=== PATIENT | female | born 1970 | race Caucasian/White ===

== ENCOUNTER → 2016-11-08 | Outpatient (CLI) | payer BC | LOC: MC.RAD 08:59 | DX: Z12.31 Encounter for screening mammogram for malignant neoplasm of breast (principal) ==

== ENCOUNTER → 2018-11-27 | Outpatient (CLI) | payer BC | LOC: MC.RAD 14:30 | DX: Z12.31 Encounter for screening mammogram for malignant neoplasm of breast (principal) ==

== ENCOUNTER → 2020-08-01 | Outpatient (CLI) | payer BC ==
[~2020-08-01] MED LIST: ASPIRIN 81M81 MG/TA2 PO; BONINE25 MG PO; FIORICET 325 MG1 TA1 PO; LIPITOR 80MG80 MG PO; PLAVIX 75MG TAB75 MG PO; VALIUM 2MG T2 MG/TAB PO; ZOFRAN ODT4 MG PO
== END ==
LOC: MC.RAD
DX: Z12.31 Encounter for screening mammogram for malignant neoplasm of breast (principal)

== ENCOUNTER 2020-08-05 12:23 | Emergency (ER) | payer BC ==
[~2020-08-05] VITALS: Ht 172.7 cm; Wt 68.2 kg
[2020-08-05 12:34] VITALS: TEMP 97.4
[2020-08-05] MEDS ORDERED: VALIUM 2MG T2 MG/TAB PO ×2 (16:14)
[2020-08-05] MEDS ORDERED: BONINE25 MG PO ×2 (16:14)
[2020-08-05] MEDS ORDERED: ZOFRAN ODT4 MG PO (16:14)
[2020-08-05 17:30] VITALS: BP 128/77; PULSE 96
== END 2020-08-05 17:30 | disposition home or self-care (01) ==
LOC: COL.ER 12:23
DX: H81.399 Other peripheral vertigo, unspecified ear (principal); R11.2 Nausea with vomiting, unspecified; Z88.0 Allergy status to penicillin; Z88.6 Allergy status to analgesic agent
CPT/HCPCS: J1200; J2060; J2405; J2765; J3360; J7030

== ENCOUNTER 2020-08-08 06:40 | Inpatient (IN) | payer BC ==
[2020-08-08] VITALS (311 sets, daily range): BP systolic 124–131; BP diastolic 72–75; PULSE 83–86; TEMP 98.3–98.8; O2SAT 88–100
[~2020-08-08] VITALS: Ht 172.7 cm; Wt 68.2 kg
[~2020-08-08 06:40] MED LIST changes: -ASPIRIN 81M81 MG/TA2 PO; -FIORICET 325 MG1 TA1 PO; -LIPITOR 80MG80 MG PO; -PLAVIX 75MG TAB75 MG PO
[2020-08-08 07:31] LABS: CALCIUM 9.5 mg/dL (8.4-10.2); CREATININE, serum 0.69 (0.52-1.25); POTASSIUM 3.4 mmol/L (3.4-5.0)
[2020-08-08 12:25] LABS: BASO # 0.1 (0.0-0.2); BASO % 0.8 % (0.0-2.0); EOS # 0.1 (0.0-0.7); EOS % 0.6 % (0-4.0); GRAN # 4.2 (1.4-6.5); GRAN % 52.7 % (42.2-75.2); HEMATOCRIT 42.1 % (37.0-47.0); HEMOGLOBIN 14.1 g/dl (12.5-16.0); LYMPH % 37.6 % (20.0-51.0); MEAN CELL VOLUME 89 fl (80.0-100.0); MEAN CORPUSCULAR HEMOGLOBIN 30 pg (27.0-31.0); MEAN CORPUSCULAR HGB CONC 34 g/dl (33.0-37.0); MEAN PLATELET VOLUME 10.7 fl (7.4-10.4); MONO # 0.6 (0.1-0.6); PLATELET COUNT 342 K/mm3 (130-400); RED BLOOD COUNT 4.72 M/mm3 (4.10-5.30); REDCELL DISTRIBUTION WIDTH-CV 11.7 % (11.5-14.5)
[2020-08-08 12:30] LABS: ALBUMIN 4.1 gm/dL (3.5-5.0); BILIRUBIN UNCONJUGATED 0.5 mg/dL (0.0-1.1); BILIRUBIN,TOTAL 0.5 mg/dL (0.0-1.0); TOTAL PROTEIN 7.4 gm/dL (6.4-8.2)
[2020-08-08 12:36] LABS: PROTHROMBIN TIME 11.6 SECONDS (9.7-12.8)
[2020-08-08 12:58] LABS: MAGNESIUM 1.9 mg/dL (1.6-2.3)
--- NOTE | 2020-08-08 13:41 | NUR ---
PT ADMITTED TO ICU FROM ED FOR CVA. PT HAS RIGHT SIDED FACIAL DROOP. PT'S VSS. PT HAS WEAKNESS AND LEANING THE RIGHT SIDE WHEN WALKING. PT IS AXOX4. PT SPEECH IS CLEAR. BEDSIDE. PT ORIENTED TO ROOM AND FLOOR. PT INSTRUCTED TO CALL WITH ALL NEEDS AND NOT TO GET UP ALONE. WILL CONTINUE TO MONITOR.
--- NOTE | 2020-08-08 14:28 | NUR ---
CT CALLED AND THEY STATED THEY WILL COME DIRECTOR OF CASINO MARKETING. SPEECH CALLED AND STATED THEY WILL COME SEE PT THIS AFTERNOON. CLARIFIED WITH DR.CHITNIS TOMPKINS TO GIVE PO ASPIRIN AFTER SPEECH EVALUATES.
--- NOTE | 2020-08-08 20:41 | NUR ---
Assessment complete and charted. Patient up to restroom and returned to bed. Unsteady gait with right sided weakness. Patient reporting double vision. Denies pains. Stroke assessment complete.
--- NOTE | 2020-08-08 21:31 | NUR ---
Patient reporting "heartburn" when laying flat. Spoke with Yaneth LEONE. Will add PPI.
[2020-08-09] VITALS (268 sets, daily range): BP systolic 113–142; BP diastolic 67–87; PULSE 72–81; TEMP 97.4–98.1; O2SAT 86–100
--- NOTE | 2020-08-09 06:07 | NUR ---
Patient reports headache. Refused rectal tylenol. Spoke with Yaneth LEONE. Orders added.
--- NOTE | 2020-08-09 07:00 | NUR ---
Patient reported GI discomfort and headache during night otherwise uneventful night. Resting in bed this AM.
--- NOTE | 2020-08-09 07:05 | NUR ---
RECEIVED REPORT FROM MARILYN NEIL. PT RESTING EASILY ON 1L VIA NC. VSS. CALL LIGHT WITHIN REACH. PT C/O SMALL WILLAMS STILL AND REQUESTS COLD WASH CLOTH TO PLACE ON FOREHEAD, PROVIDED. PT STILL REFUSES SUPPOSITORY TYLENOL AT THIS TIME.
--- NOTE | 2020-08-09 07:26 | NUR ---
Report given to Jonathon SANDERS
[2020-08-09 08:00] LABS: CHOLESTEROL RISK RATIO 4.5
--- NOTE | 2020-08-09 09:34 | NUR ---
DISCUSSED POC WITH DR ARTIS AND PER REPORT, NO CHANGES IN STROKE LIKE SYMPTOMS. NEW ORDERS RECEIVED. PHYSICIAN STATES AFTER SWALLOW STUDY DONE, MAY CHANGE PILL ADMINISTRTIONS AND DIET ORDERS DEPENDING ON RESULTS.
--- NOTE | 2020-08-09 10:31 | NUR ---
Plan to participate in IPR or SNF. SW met with patient about care. SW met with and client in room. Dante Cabello . No other contact listed. Patient reports that they resides locally. PCP is Dr. Yancy Martínez. Patient reports that use of [facility] for medications. Ping does not have a DPOA and reports that will verbalize. Patient reports that her vision is off and balances is off. Patient will work with PT/OT to support care plan. Patient and spouse is agreeable to referral to SNF, educated on [facility], [facility], and [facility] as back up to plan. Patient denies having any DME use but wants to know if she needs to obtain a wheelchair or walker. Educated on how to obtain one. Referral will be sent to SNF and await response.
--- NOTE | 2020-08-09 10:40 | NUR ---
Plan for SNF or IPR. CORNELIA met with patient and spouse Dante Cabello .No other contact persons. Patient reports her PCP is Dr. Yancy Martínez. Patient reports that she uses [facility] for medications. Patient shares that she does not use any DME but asked how to obtain a walker or wheelchair. SW educated on process if needed. Patient reports that she is not opposed to the SNF referral with [facility], [facility], [facility] as a backup to the plan. Patient reports that she is wanting to do DPOA and her and her spouse will talk about it. SW will faxed [facility] for SNF services. Patient reports that her vision is blurred and gait is unsteady. Patient reports that prior to this episode, she was fully healty. Educated on care. Will continue to follow.
--- NOTE | 2020-08-09 11:24 | NUR ---
PT TO SWALLOW STUDY WITH SPEECH THERAPY VIA WC ON RA AT 1037. PT BACK AT 1124. PER SPEECH THERAPY RECOMMENDATIONS, MECHANICAL SOFT DIET RECOMMENDED AND SUGGESTED TO CRUSH PILLS AT THIS TIME UNTIL PT GETS STRONGER TO SWALLOW A PILL WHOLE EASIER AGAIN. NOTED EASIER TO SWALLOW SOLIDS EASIER WHEN TURNED HEAD TO THE RIGHT AND WITH WATER TO FOLLOW SOLIDS BITE. PT PLACED BACK IN BED AND BACK ON BEDSIDE COTNINUOUS MONITOR. CALL LIGHT WITHIN REACH. AT BEDSIDE.
--- NOTE | 2020-08-09 12:50 | NUR ---
First visit from the glove finisher. No needs right now.
--- NOTE | 2020-08-09 13:10 | NUR ---
SPOKE TO DR LANE ABOUT SWALLOW STUDY AND POC. PT UPDATED AND AWARE OF TRANSFER ORDERS.
--- NOTE | 2020-08-09 14:04 | NUR ---
Control Officer was contacted by Belem at [facility] who advised patient does not have skilled benefits through her [employer] Policy. Belem advised they could accept on a private pay basis.
--- NOTE | 2020-08-09 15:04 | NUR ---
REPORT GIVEN TO MARILYN CHAVARRIA ON MEDICAL. PT TO TRANSFER VIA WC TO [address]. ALL PERSONAL BELONGINGS SENT WITH PT.
--- NOTE | 2020-08-09 16:00 | NUR ---
Pt admitted to medical unit rm 318 from ICU via WC accompanied by MARILYN Velasquez. Pt awake and alert, oriented x 4. ST at bedside at this time and pt slowly eating lunch. IVF's infusing to right AC site without s/s of complications. Pt's at bedside. Call light in reach.
--- NOTE | 2020-08-09 16:40 | NUR ---
IVF's stopped and disconnected per transfer orders.
--- NOTE | 2020-08-09 18:47 | NUR ---
Pt assisted with shower from COPY TECHNICIAN per request. COPY TECHNICIAN reports pt able to do all bathing independently. Pt reports feeling like the water was not warm on her left upper back/shoulder compared to the right side. Report with MARILYN Daniel.
--- NOTE | 2020-08-10 00:06 | NUR ---
Patient sitting up and having dinner upon enter the room. Shift assessment completed. Patient A/O x4. Patient denies any chest pain, discomfort, N/V, headache, or dizziness while at rest. Patient reports having a little SOB and dizzy upon get up and ambulate. Patient states due to her double vision, can't see well and dizzy when get up. Patient currently on 1L oxygen via NC. VS stable. All scheduled meds given. Pills crushed and mixed in apple sauce given. Patient was able to take it small bite each time. Patient reports some numbness to right side of face. Upper and lower extremities senstations are intact and able to follow commands. Call light within reach. Patient denies any needs at this time.
[2020-08-10 00:43] VITALS: BP 121/71; PULSE 77; TEMP 98.2
[2020-08-10 04:31] VITALS: BP 110/65; PULSE 74; TEMP 98.6
--- NOTE | 2020-08-10 06:25 | NUR ---
Patient c/o headache around 01:40 am. Patient denies chest pain, SOB, N/V. Able to move all the extremities without difficulty. VS stable. PRN Tylenol given for headache. Patient fell asleep after a while. Patient awake around 05:30 am and c/o bad headache. Denies chest pain, SOB, or N/V. Called hospitalist EZEQUIEL Zelaya and received order to get head CT done. Patient down to head CT at this time. Will give report to day shift nurse.
--- NOTE | 2020-08-10 07:43 | NUR ---
RECIEVED BEDSIDE REPORT FROM MARILYN DELGADO. PATIENT C/O SEVERE HEADACHE ON THE RIGHT SIDE OF HER HEAD. REPORTS THROBBING EVERY 10-[address] DONE NO SIGNIFICANT FINDINGS. PATIENT GIVEN 650 MG OF TYLENOL, A COLD COMPRESS, AND LIGHTS WERE TURNED OUT. PATIENT IS RESTING IN BED AT THIS TIME. WILL CONTINUE TO MONITOR. FALL PERCAUTIONS IN PLACE. CALL LIGHT WITHIN REACH.
[2020-08-10 08:15] VITALS: BP 121/68; PULSE 98; TEMP 98.1
[2020-08-10] MEDS ORDERED: LIPITOR 80MG80 MG PO (10:46)
[2020-08-10] MEDS ORDERED: ASPIRIN 81M81 MG/TA2 PO (10:46)
[2020-08-10] MEDS ORDERED: PLAVIX 75MG TAB75 MG PO (10:46)
[2020-08-10] MEDS ORDERED: FIORICET 325 MG1 TA1 PO (10:47)
[2020-08-10 11:41] VITALS: BP 123/82; PULSE 87; TEMP 97.9
--- NOTE | 2020-08-10 11:45 | NUR ---
Patient to discharge to [facility] today.
[2020-08-10 11:52] VITALS: BP 123/82; PULSE 87; TEMP 97.9
--- NOTE | 2020-08-10 12:39 | NUR ---
PATIENT VISITING WITH FAMILY AT THIS TIME. DENIES ANY PAIN OR DISCOMFORT AT THIS TIME. PATIENT TRANSFERED TO [facility].
== END 2020-08-10 13:16 | DRG 66 ==
LOC: COL.ER 06:40 → ICU 12:13 → MEDICAL 08-09 15:06
PROVIDERS: Emergency Medicine; Hospitalist; ADMIT Internal Medicine
DX: I63.211 Cerebral infarction due to unspecified occlusion or stenosis of right vertebral artery (principal); R29.704 NIHSS score 4; G43.909 Migraine, unspecified, not intractable, without status migrainosus; E87.6 Hypokalemia; R47.81 Slurred speech; R29.810 Facial weakness; Z88.0 Allergy status to penicillin; Z88.6 Allergy status to analgesic agent
CPT/HCPCS: 99222-AI; 99232-AI; 99239; A9585; C9113; J1200; J1650; J2765; J3480; J7030; Q9967

== ENCOUNTER 2020-08-10 12:55 | Inpatient (IN) | payer BC ==
[~2020-08-10] VITALS: Ht 172.7 cm; Wt 67.9 kg
[~2020-08-10 12:55] MED LIST changes: +ASPIRIN 81M81 MG/TA2 PO; +FIORICET 325 MG1 TA1 PO; +LIPITOR 80MG80 MG PO; +PLAVIX 75MG TAB75 MG PO
[2020-08-10 17:42] VITALS: BP 117/80; PULSE 81; TEMP 97.5
--- NOTE | 2020-08-10 20:01 | NUR ---
Patient arrived to [facility] at 12:55 PM today. Patient was a one assist with transferring from wheelchair to the standing scale. Patient's assessments were completed. She refused her flu vaccine. This nurse had received report from MARILYN Dexter at the medical unit. Patient has right side face drooping and double vision. Patient does wear glasses, but they do bother her due to her diplopia. She has no skin issues. Patient was oriented to [facility] schedule. This nurse then reported off to night nurse.
--- NOTE | 2020-08-10 21:00 | NUR ---
PT RESTING IN BED. SPEECH CLEAR. PT RELATES STILL HAVING DOUBLE VISION BUT IT IS IMPROVING. FEELS ALITTLE WEAKER IN LT HAND. NO NUMBNESS. WEAK GAIT- UNSTEADY. PT REPORTS EQUILIBRIUM IS BAD. PT REPORTS SOON SHE GOT INTO BED SHE STARTED GETING AHEAD ACHE. PT WANTS TO START WITH TYLENOL FIRST THEN IF IT GETS WORSE SHE TRY FIORECET. CALL LIGHT IN REACH. BED ALARM SET. SET UP SCD'S.
--- NOTE | 2020-08-10 23:00 | NUR ---
PT SLEEPING. NO DISTRESS.
--- NOTE | 2020-08-11 04:18 | NUR ---
GAVE TYLENOL FOR HEADACHE LEVEL 10. BP WNL. ALL PILLS CRUSHED IN APPLESAUCE TONIGHT AND TOLERATED WELL. DENIES ANY OTHER COMPLAINTS.
[2020-08-11 04:21] VITALS: BP 100/50; PULSE 72; TEMP 97.2
--- NOTE | 2020-08-11 06:07 | NUR ---
GIVEN FIORECCET FOR UNRELIEVED WILLAMS PAIN LOCALIZED TO RT SIDE. NO VISUAL CHANGES. ADMINISTRATIVE TECHNICIAN UNCHANGED. VSS
--- NOTE | 2020-08-11 08:52 | NUR ---
PT RESTING IN BED AT REPORT. DENIES HEADACHE THIS AM, SLEPT INTERMITTENTLY.
--- NOTE | 2020-08-11 10:27 | NUR ---
Initial visit; Patient states she is tired but appreciative of all of her ilan jarrett from friends and amazed at the wonderful staff we have here. She and her remarked about the wonderful care she has received. She has no spiritual needs at this time though is receptive to having Restaurant Kitchen Manager keep her in her prayers.
--- NOTE | 2020-08-11 14:41 | NUR ---
CORNELIA met with the patient and her , Dante (ph#[phone]), to complete intake, as the patient is new to [facility]. The patient lives in [place] with her . She reports independence with ADLs before the CVA and does not have any DME. The patient's PCP is Dr. Yancy Martínez and [facility] She reports no difficulties obtaining her meds. The patient does not have a DPOA-HC, but her and her were both interested in obtaining a form. CORNELIA provided. The patient and her plan to complete one while here. SW to continue to follow.
--- NOTE | 2020-08-11 15:41 | NUR ---
The patient and her both completed a DPOA-HC. The patient designated her and her brother, Flaco Cleaning, as the alternate. CORNELIA and RN, Wendy, witnessed the patient's signature. The patient was provided with the original and some copies. CORNELIA placed a copy in the patient's chart. The patient and her were also interested in obtaining a Living Will form. CORNELIA provided.
[2020-08-11 17:53] VITALS: BP 120/82; PULSE 77; TEMP 97.9
--- NOTE | 2020-08-11 19:50 | NUR ---
PT VERY UPSET ABOUT FOOD OPTIONS FOR VEGETARIANS IN THE [place]. HAS EATEN VERY LITTLE FOR SEVERAL DAYS. REQUESTED BRINGING MINI FRIDGE IN SO SHE COULD HAVE HER OWN FOOD OPTIONS AVAILAB. KOBI SHAFER NOTIFIED AND SAID SHE WOULD LOOK INTO IT. WAS TOLD BY KOBI LATER IN THE DAY THAT SHE CHECKED WITH [facility] AND THE FRIDGE WAS OKAYD. PT ALSO OKAY'D BY THERAPY, RN, AND [facility] REHAB COORDINATOR TO GO OUT TO [facility] WITH . PT REPORTED MILD HEADACHE BEGINNING TONIGHT BUT REFUSED MEDICATION AT THIS TIME.
--- NOTE | 2020-08-11 20:00 | NUR ---
PT RESTING IN BED. HAVING MILD WILLAMS. BP WNL. NO NEUROLOGICAL CHANGES. SEE MAR FOR TYLENOL GIVEN. CALL LIGHT IN REACH. BED ALARM SET.
--- NOTE | 2020-08-12 03:30 | NUR ---
PT AWAKE. HAVING HEADACHE AGAIN. GAVE FIORICET 1 TAB. NO CHANGES IN NEURO STATUS.
[2020-08-12 05:44] VITALS: BP 118/74; PULSE 75; TEMP 98
[2020-08-12 16:51] VITALS: BP 116/65; PULSE 74; TEMP 98
--- NOTE | 2020-08-12 18:54 | NUR ---
PATIENT GIVEN PRN TYLENOL OF HEADACHE IN THE MORNING WITH AM MEDS. PATIENT DENIED PAIN THROUGHOUT THE REST OF THE SHIFT. PATIENT NEEDING SBA TO MIN CGA FOR STEADYING. REPORT GIVEN TO MARILYN LUGO.
--- NOTE | 2020-08-12 20:59 | NUR ---
PT REFUSES SCD'S. ENC FREQUENT FOOT, ANKLE AND KNEE ROM. PT AGREED.
[2020-08-13 05:36] VITALS: BP 125/81; PULSE 65; TEMP 98
[2020-08-13 10:34] VITALS: BP 115/79; PULSE 68
--- NOTE | 2020-08-13 10:37 | NUR ---
Patient will discharge home today 08/13 with Dante. No further needs at this time.
[2020-08-13 16:19] VITALS: BP 110/84; PULSE 80; TEMP 97.4
--- NOTE | 2020-08-13 18:56 | NUR ---
PATIENT GIVEN TYLENOL IN AM FOR HEADACHE. PATIENT DENIED PAIN FOR THE REST OF THE SHIFT. PATIENT HAS BEEN SBA WITH THE GAIT BELT IN THE ROOM. REPORT GIVEN TO MARILYN LUGO.
--- NOTE | 2020-08-13 20:31 | NUR ---
PT SITTING UP IN RECLINER. WORKING ON COMPUTER. PT DENIES WILLAMS. BANDER HAND EQUAL BILAT. DOUBLE VISION IMPROVING PER PT. PT REPORTED ATE A GOOD PM MEAL TONIGHT OF HER OWN FOOD. REFUSES SCD'S TONIGHT. REMINDED OF PURPOSE FOR SCD'S. CALL LIGHT IN REACH. CHAIR ALARM SET.
[2020-08-14 04:08] VITALS: BP 113/79; PULSE 81; TEMP 98.6
--- NOTE | 2020-08-14 04:09 | NUR ---
PT AWAKES WITH FRONTAL H/A AGAIN. NO CHANGE IN VISUAL DEFECTS. VSS. TYLENOL CRUSHED IN APPLESAUCE. NO CHOKING. GIVEN. ASSISTED TO BR WITH WALKER. VOIDED W/O DIFFICULTY. BACK TO BED. HOB REMAINS ELEVATED. CALL LIGHT IN REACH. BED ALARM SET.
[2020-08-14 06:27] LABS: BASO % 0.5 % (0.0-2.0); EOS # 0.1 (0.0-0.7); EOS % 2.2 % (0-4.0); HEMATOCRIT 39.1 % (37.0-47.0); HEMOGLOBIN 12.7 g/dl (12.5-16.0); LYMPH # 1.6 (1.2-3.4); LYMPH % 37.7 % (20.0-51.0); MEAN CELL VOLUME 91 fl (80.0-100.0); MEAN CORPUSCULAR HEMOGLOBIN 30 pg (27.0-31.0); MEAN CORPUSCULAR HGB CONC 33 g/dl (33.0-37.0); MEAN PLATELET VOLUME 10.3 fl (7.4-10.4); MONO # 0.4 (0.1-0.6); MONO % 10.4 % (1.7-9.3); PLATELET COUNT 309 K/mm3 (130-400); RED BLOOD COUNT 4.29 M/mm3 (4.10-5.30); REDCELL DISTRIBUTION WIDTH-CV 11.9 % (11.5-14.5)
[2020-08-14 06:44] LABS: CALCIUM 9.3 mg/dL (8.4-10.2); CREATININE, serum 0.63 (0.52-1.25)
--- NOTE | 2020-08-14 08:28 | NUR ---
PT SLEEPING AT REPORT, REPORTS MILD HEADACHE AND TOOK PRN APAP THIS AM FOR IT.
--- NOTE | 2020-08-14 11:50 | NUR ---
CORNELIA met with the patient and her to follow up after the weekend. The patient states that she is doing well. The patient and her would like to complete a Living Will. CORNELIA and GRAVURE PRESS OPERATORFranko, witnessed the patient's signature. The patient was provided with the original and some copies. CORNELIA placed a copy in the patient's chart. The patient also provided SW with FMLA paperwork that needs to be completed and signed by the physician. CORNELIA notified IPR Director and will provide IPR Director with the forms.
--- NOTE | 2020-08-14 14:37 | NUR ---
The patient's FMLA paperwork was completed and signed by the physician. SW provided the forms back to the patient and her . SW placed a copy of the forms in the patient's chart.
[2020-08-14 16:19] VITALS: BP 108/81; PULSE 78; TEMP 97.7
--- NOTE | 2020-08-14 19:06 | NUR ---
PT RECEIVED PRN APAP ONCE THIS SHIFT FOR HEADACHE. NO OTHER COMPLAINTS THIS SHIFT.
--- NOTE | 2020-08-14 21:30 | NUR ---
Patient called and requested tylenol and to get ready for bed. Patient swallowed pills without difficulty. Patient walked to bathroom with gait belt and one assist, brushed her teeth, and washed her face. No other needs at this time. Call light in reach.
[2020-08-15 04:11] VITALS: BP 119/69; PULSE 84; TEMP 97.6
--- NOTE | 2020-08-15 05:03 | NUR ---
Patient woke up with complaints of a headache. Tylenol administered.
--- NOTE | 2020-08-15 07:40 | NUR ---
Patient resting in bed, call light in reach and bed alarm set. Patient independent with eating her meals.
--- NOTE | 2020-08-15 13:59 | NUR ---
CORNELIA met with the patient and her to discuss setting up a patient/family meeting. The meeting was scheduled on at 1300. CORNELIA notified IPR Director.
--- NOTE | 2020-08-15 14:49 | NUR ---
Admission QIM scores were reviewed by the team. Code of 4 chosen for toilet hygiene was determined by team discussion to be the most usual performance for this patient during the assessment period. Code of 3 chosen for toileting transfers was determined by team discussion to be the most usual performance for this patient during the assessment period. Code of 4 chosen for rolling left to right was determined by team discussion to be the most usual performance for this patient during the assessment period. Code of 4 chosen for sit to lying was determined by team discussion to be the most usual performance for this patient during the assessment period. Code of 4 chosen for lying to sitting on side of bed was determined by team discussion to be the most usual performance for this patient during the assessment period. Code of 3 for sit to stand was determined by team discussion to be the most usual performance for this patient during the assessment period. Code of 3 for chair/bed to chair transfers was determined by team discussion to be the most usual performance for this patient during the assessment period.--Isis Duarte,
[2020-08-15 18:00] VITALS: BP 122/76; PULSE 77; TEMP 97.8
--- NOTE | 2020-08-15 20:00 | NUR ---
PATIENT SITTING IN UPRIGHT CHAIR FULLY DRESSED, HAIR DONE UP, TALKING WITH , PATIENT DEMONSTRATED STanding UP ON HER OWN BILATERIL SQUEEZE OF HANDS, SOME DOUBLE VISION LEFT SIDE PERIFERY. MINOR HEADACHE, RIGHT FRONTAL,
--- NOTE | 2020-08-15 20:01 | NUR ---
Patient attended all therapies and tolerated diet as well. Patient continues to receive her meals from her family due to her food allergies. Patient takes her pills whole with water and takes Tylenol to help with her headaches. She reported a headache only once today. Patient's was at her side throughout the day today. Patient continues to have double vision. Will continue to monitor.
[2020-08-16 05:59] VITALS: BP 120/77; PULSE 82; TEMP 98.2
--- NOTE | 2020-08-16 08:09 | NUR ---
Patient resting in bed, call light in reach bed alarm set. Patient eating her breakfast at this time. Will continue to monitor.
--- NOTE | 2020-08-16 08:11 | NUR ---
Patient reporting throbbing pain around her right restorationism and eye. Double vision when looking up and peripherial. Will continue to monitor.
--- NOTE | 2020-08-16 09:49 | NUR ---
Patient currently working with OT at this time.
--- NOTE | 2020-08-16 16:28 | NUR ---
CORNELIA met with the patient and her to present and review the IPR Team Conference Note. The team has set a tentative d/c date for this Friday, 08/19, with outpatient PT/OT/ST. The patient and her were agreeable to the plan. The patient states that her ended up failing his stress test and has a heart cath scheduled tomorrow, so he will not be available for the patient/family meeting. She states that she will have help from a friend for a week though, while her recovers. The patient/family meeting was rescheduled for Friday at 1300. CORNELIA notified IPR Director. CORNELIA informed the patient how [facility] has all three disciplines. The patient states that she needs to research the therapy center first before deciding on if she wants to pursue therapy there or not. The patient was also interested in obtaining her medical records. CORNELIA provided the patient with the Request for Medical Records form to the patient and provided her with Medical Records phone number. CORNELIA answered all questions.
[2020-08-16 17:14] VITALS: BP 114/78; PULSE 85; TEMP 97.5
--- NOTE | 2020-08-16 19:55 | NUR ---
Patient attended all therapies today. Tolerated her diet well. Patient currently resting in recliner, with by her side. Call light in reach and alarm set. Reported off to night nurse.
--- NOTE | 2020-08-16 23:01 | NUR ---
2044- ASSESSMENT COMPLETE. PT SETTING UP IN RECLINER. SPOUSE HAD JUST LEFT AFTER DINNER. PT IS STARTING TO HAVE HEADACHE STATES ITS COMMEN AT NIGHT. DENIES ANY OTHER PAIN OR DEFICITES TONIGHT. NEURO INTACT. PLAN OF CARE FOR NIGHT DISCUSSED. NEEDS MET.
[2020-08-17 03:40] VITALS: BP 113/78; PULSE 81; TEMP 97.6
--- NOTE | 2020-08-17 05:22 | NUR ---
SLEPT THROUGH MOST OF NIGHT WITHOUT INCIDENT. DID HAVE TO TREAT HEADACHE OTHER DAHL PT DOING WELL. NEEDS MET.
--- NOTE | 2020-08-17 12:06 | NUR ---
PT MADE IND IN ROOM TODAY PER THERAPY. PT DENIES PAIN THIS AM.
--- NOTE | 2020-08-17 15:44 | NUR ---
CORNELIA met with the patient to follow up on preference for outpatient therapy. The patient would like to go ahead and get set up at [facility]. CORNELIA attempted to contact [facility] to schedule the appointments. CORNELIA left them a voicemail. The patient also provided CORNELIA with her Request of Medical Information Form. CORNELIA provided the form to Medical Records. The patient informed CORNELIA that her will staying overnight in the hospital after his procedure today and should d/c tomorrow. SW to continue to follow.
--- NOTE | 2020-08-17 20:07 | NUR ---
PT MADE INDEPENDENT IN ROOM TODAY PER THERAPY. NO PRN'S, SPENT EVENING WITH WHO IS IN ICU. PT ASSISTED THERE AND BACK BY STAFF AND ENCOURAGED TO CALL FOR ANY ISSUES, ICU STAFF WAS AWARE AND OK WITH THIS ARRANGEMENT.
[2020-08-17 20:16] VITALS: BP 126/70; PULSE 92; TEMP 98.1
--- NOTE | 2020-08-18 00:27 | NUR ---
2100- ASSESSMENT COMPLETE. PT DENIES ANY MILD HEADACHE. TYLENOL GIVEN. DENIES ANY SOA, DIZZY OR CHEST PAIN. UP INDEPENDENTLY IN ROOM. PLAN OF CARE DISCUSSED. NEEDS MET.
[2020-08-18 05:08] VITALS: BP 123/75; PULSE 83; TEMP 97.4
--- NOTE | 2020-08-18 05:26 | NUR ---
rested through night without incident. dsg remained c/d/i. did have bm this am along w alot of gas. tylenol still working for pain control.
--- NOTE | 2020-08-18 05:28 | NUR ---
last note at 0535 created in error. charting on wrong pt. pt rested through night without incident. tyl given for headache otherwise not issue.
--- NOTE | 2020-08-18 08:54 | NUR ---
Patient resting in bed at this time.
--- NOTE | 2020-08-18 09:23 | NUR ---
CORNELIA contacted [facility] and scheduled the patient an outpatient PT appointment on 08/24 at 0930, an OT appointment on 08/24 at 1100, and an ST appointment on 09/05 at 0830. CORNELIA provided the appointments to the patient's RN. CORNELIA will need to fax the patient's d/c orders to [facility] [phone].
[2020-08-18] MEDS ORDERED: LIPITOR 80MG80 MG PO (11:40)
[2020-08-18] MEDS ORDERED: PLAVIX 75MG TAB75 MG PO (11:40)
--- NOTE | 2020-08-18 14:49 | NUR ---
Patient attended all therapies today. Continues to have headaches and has been taking tylenol with good effect at times. She reports that headaches are worse in the evenings, but they are still tolerable. Dr. Curran's office was called, but it is closed today. Patient will call their office on Friday to schedule a follow up appointment. Patient and are trying to decide which physician to choose at this time.
--- NOTE | 2020-08-18 15:05 | NUR ---
CORNELIA attended the patient/family meeting. The patient's , Dante, was at bedside. Also present was IPR Director, PT, OT, and ST. IPR Director started by explaining the purpose of the meeting. PT/OT/ST then discussed the patient's progress so far and confirmed the d/c date for tomorrow with outpatient PT/OT/ST. The patient and her were agreeable to the plan. The team answered all questions. The patient reports that she would prefer later times now for her appointments. CORNELIA informed her of the appointment times. The patient was okay with the outpatient PT/OT times. She requested a later time the day of her ST appointment. If no later time, she would take the appointment she has now. CORNELIA contacted [facility]. The legal receptionist reports that they do not have any later times for ST the day of her ST appointment. The next available day would be 09/18. CORNELIA met with the patient and her to update. The patient would like to see ST before 09/05. CORNELIA informed her about how [facility] offers outpatient ST. The patient would like to go ahead and see if they have any sooner appointments. CORNELIA contacted Wendy at [facility] and scheduled the patient an outpatient ST appointment on 08/25 at 1100. CORNELIA informed the patient and her . The patient is agreeable to that appointment. CORNELIA notified the patient's RN of the appointment change. CORNELIA will need to fax the patient's discharge orders to [facility] (fax#[phone]) as well as [facility] for the outpatient PT/OT. CORNELIA contacted [facility] and canceled the patient's ST appointment there.
--- NOTE | 2020-08-18 15:39 | NUR ---
Patient resting in recliner, call light in reach and at her side and is independent in her room. Patient attended all therapies today. Tolerating diet well. Patient's called eye doctor Dr. Youssef requesting a call back regarding what opthamologist he would recommend patient to see upon discharge. Awaiting a return call at this time.
[2020-08-18 15:59] VITALS: BP 118/81; PULSE 86; TEMP 98.5
--- NOTE | 2020-08-18 20:00 | NUR ---
RECEIVED CHANGE OF SHIFT REPORT FROM DAY SHIFT NURSE. PATIENT UP IN ROOM PER SELF WITH NO REPORTED PROBLEMS OR CONCERNS.
[2020-08-19 04:16] VITALS: BP 120/78; PULSE 71; TEMP 97
--- NOTE | 2020-08-19 07:54 | NUR ---
CHANGE OF SHIFT REPORT GIVEN TO DAY SHIFT NURSE, DOROTHY SANDERS.
--- NOTE | 2020-08-19 14:44 | NUR ---
PT DENED PAIN THIS AM. PT HEALTH SUMMARY, DISCHARGE SUMMARY, AND HOME MEDS PRINTED AND REVIEWED WITH PT AND . STRESSED IMPORTANCE OF FOLLOW UP APPTS. REVIEWED MEDICATIONS, PRESCRIPTIONS PICKED UP FROM PHARMACY. BELONGINGS GATHERED BY INCLUDING CELLPHONE, LAPTOP. PT AMBULATED WITH NURSE AND SEATBELTED FOR RIDE HOME. PT AND RELATION DENIED QUESTIONS.
== END 2020-08-19 11:45 | disposition home or self-care (01) | DRG 56 ==
PROVIDERS: ADMIT Internal Medicine
DX: I69.334 Monoplegia of upper limb following cerebral infarction affecting left non-dominant side (principal); I63.212 Cerebral infarction due to unspecified occlusion or stenosis of left vertebral artery; E87.6 Hypokalemia; R13.12 Dysphagia, oropharyngeal phase; I69.392 Facial weakness following cerebral infarction; G43.909 Migraine, unspecified, not intractable, without status migrainosus; R42 Dizziness and giddiness; Z79.82 Long term (current) use of aspirin; Z88.0 Allergy status to penicillin; Z88.6 Allergy status to analgesic agent
CPT/HCPCS: 99222-AI; 99231-AI; 99232-AI; 99239; J1650

== ENCOUNTER 2020-10-19 14:15 | Outpatient (RCR) | payer BC | END 2020-11-22 | disposition still patient (30) | LOC: MKS.ESL.OT | DX: I63.9 Cerebral infarction, unspecified (principal) ==

== ENCOUNTER → 2022-03-29 | Outpatient (CLI) | payer BC | LOC: MC.RAD 13:45 | DX: Z12.31 Encounter for screening mammogram for malignant neoplasm of breast (principal) ==